=== PATIENT | female | born 1975 | race Caucasian/White ===

== ENCOUNTER 2019-06-05 13:13 | Outpatient (CLI) | payer OTHER | END 2019-06-05 23:59 | disposition home or self-care (01) | LOC: CFH 13:13 | PROVIDERS: ATTEND Obstetrics & Gynecology | DX: Z12.31 Encounter for screening mammogram for malignant neoplasm of breast (principal); N64.89 Other specified disorders of breast; Z80.3 Family history of malignant neoplasm of breast | CPT/HCPCS: 77063; 77067 ==

== ENCOUNTER → 2019-06-19 | Outpatient (CLI) | payer OTHER | END | disposition home or self-care (01) | LOC: CFH 08:09 | PROVIDERS: ATTEND Obstetrics & Gynecology | DX: N64.89 Other specified disorders of breast (principal); N92.0 Excessive and frequent menstruation with regular cycle; N64.59 Other signs and symptoms in breast; N63.0 Unspecified lump in unspecified breast | CPT/HCPCS: 76642; 76830; 77065 ==